=== PATIENT | male | born 1955 | race Caucasian/White ===

== ENCOUNTER 2019-04-06 10:05 | Emergency (ER) | payer SELFPAY ==
[~2019-04-06] VITALS: Ht 167.6 cm; Wt 85.7 kg
--- NOTE | 2019-04-06 10:08 | NUR ---
PT BIBA RA 860 Back Pain "chronic pain on [place] from work injury 4y ago" PT IS AAOX4, NOT IN RESPIRATORY DISTRESS, HOOKED TO MONITOR, KEPT RESTED AND COMFORTABLE, WILL CONTINUE TO MONITOR.
--- NOTE | 2019-04-06 10:17 | NUR ---
AT BEDSIDE FOR EVAL.
[2019-04-06] MEDS ORDERED: IBUPROFEN 600 MG TABLET PO ONE ×2 (10:30→10:33)
[2019-04-06] MEDS ORDERED: ACETAMINOPHEN ES 500 MG TABLET PO ONE (10:30)
[2019-04-06] MEDS ORDERED: CYCLOBENZAPRINE 10 MG TABLET PO ONE (10:30)
[2019-04-06] MEDS ORDERED: CYCLOBENZAPRINE 10 MG TABLET ONE (10:33)
[2019-04-06] MEDS ORDERED: ACETAMINOPHEN ES 500 MG TABLET ONE (10:33)
--- NOTE | 2019-04-06 10:46 | NUR ---
PT IS WHEELED TO CT SCAN VIA [facility].
[2019-04-06 12:33] VITALS: BP 149/102
--- NOTE | 2019-04-06 12:33 | NUR ---
Patient discharged to home in stable condition. Written and verbal after care instructions given. Patient verbalizes understanding of instruction.
== END 2019-04-06 12:35 | disposition home or self-care (01) ==
LOC: ER 10:05
DX: M54.2 Cervicalgia (principal); G89.29 Other chronic pain; M54.5 Low back pain; M25.512 Pain in left shoulder; I10 Essential (primary) hypertension; W18.39XA Other fall on same level, initial encounter; Y93.89 Activity, other specified; Y92.89 Other specified places as the place of occurrence of the external cause; Y99.8 Other external cause status
CPT/HCPCS: 72050-TC